=== PATIENT | female | born 1995 | race Caucasian/White ===

== ENCOUNTER 2017-07-14 07:20 | Emergency (ER) | payer BC ==
[~2017-07-14] VITALS: Ht 165.1 cm; Wt 117.9 kg
[2017-07-14 07:25] VITALS: BP_SYST 131
[2017-07-14] MEDS ORDERED: NACL 0.9% 1,000 ML IV ONE (07:45)
[2017-07-14] MEDS ORDERED: ONDANSETRON HCL 4 MG/2 ML VIAL IVP ONE (07:45)
[2017-07-14 08:18] LABS: BILIRUBIN,URINE 1+ (NEGATIVE); BLOOD, URINE 2+ (NEGATIVE); CLARITY/URINE CLEAR (CLEAR); COLOR,URINE YELLOW (YELLOW); GLUCOSE,URINE NEGATIVE (NEGATIVE); KETONES,URINE NEGATIVE (NEGATIVE); LEUKOCYTE ESTERASE ,URINE NEGATIVE (NEGATIVE); NITRITE, URINE NEGATIVE (NEGATIVE); PROTEIN URINE NEGATIVE (NEGATIVE); UROBILINOGEN,URINE 0.2 (0.2-1.0)
[2017-07-14 08:25] LABS: BASOPHILS % (AUTO) 0.5 % (0.0-2.0); EOSINOPHILS # (AUTO) 0.1 K/uL (0.0-0.4); EOSINOPHILS % (AUTO) 0.6 % (0.0-4.0); HEMATOCRIT 47.1 % (36-48); HEMOGLOBIN 15.4 g/dL (12.0-16.0); LYMPHOCYTES # (AUTO) 1.4 K/uL (1.0-5.5); LYMPHOCYTES % (AUTO) 14.7 % (20.5-51.5); MEAN CORPUSCULAR HEMOGLOBIN 28 pg (27-31); MEAN CORPUSCULAR HGB CONC 33 % (32-36); MEAN CORPUSCULAR VOLUME 84 fL (79.0-98.0); MONOCYTES # (AUTO) 0.4 K/uL (0.0-1.0); MONOCYTES % (AUTO) 4.5 % (1.7-9.3); NEUTROPHILS # (AUTO) 7.3 K/uL (1.8-7.7); NEUTROPHILS % (AUTO) 79.7 % (40.0-70.0); PLATELET COUNT (AUTO) 289 K/uL (130-430); RED BLOOD CELL COUNT(AUTO) 5.61 MIL/uL (4.2-6.2); RED CELL DISTRIBUTION WIDTH 12.5 % (9.0-15.0); WHITE BLOOD COUNT (AUTO) 9.2 K/uL (4.5-11.0)
[2017-07-14 08:39] LABS: CALCIUM 9.6 mg/dL (8.4-11.0); CREATININE 0.83 mg/dL (0.55-1.30); POTASSIUM 3.9 mmol/L (3.5-5.1)
[2017-07-14 08:44] LABS: ALBUMIN 4.6 g/dL (3.4-4.8); TOTAL BILIRUBIN 1.1 mg/dL (0.0-1.0)
[2017-07-14 09:29] LABS: BACTERIA,URINE FEW /HPF (None Seen); RBC,URINE 0-3 /HPF (0-3); WBC,URINE 0-3 /HPF (0-3)
[2017-07-14 09:30] LABS: MUCUS,URINE 1+ /LPF (None Seen)
[2017-07-14 09:45] VITALS: BP_SYST 128
== END 2017-07-14 09:45 | disposition home or self-care (01) ==
LOC: SED 07:20
DX: R11.0 Nausea (principal); Z90.89 Acquired absence of other organs; Z90.49 Acquired absence of other specified parts of digestive tract; Z90.721 Acquired absence of ovaries, unilateral
CPT/HCPCS: 36415; 74000; 80053; 81000; 81025; 83690; 85025; 96361; 96374; 99285; J2405; J7030

== ENCOUNTER 2017-09-24 04:45 | Emergency (ER) | payer BC ==
[~2017-09-24] VITALS: Ht 165.1 cm; Wt 113.4 kg
[2017-09-24 04:45] VITALS: BP_SYST 137
--- NOTE | 2017-09-24 05:31 | NUR ---
Patient to ER bed 6 to gown for evaluation. Side rails up. Report given to MONTRELL MORAN.
[2017-09-24 05:33] LABS: BILIRUBIN,URINE 1+ (NEGATIVE); BLOOD, URINE TRACE (NEGATIVE); CLARITY/URINE HAZY (CLEAR); COLOR,URINE YELLOW (YELLOW); GLUCOSE,URINE NEGATIVE (NEGATIVE); KETONES,URINE NEGATIVE (NEGATIVE); LEUKOCYTE ESTERASE ,URINE NEGATIVE (NEGATIVE); NITRITE, URINE NEGATIVE (NEGATIVE); PROTEIN URINE TRACE (NEGATIVE)
[2017-09-24] MEDS: ONDANSETRON HCL 4 MG/2 ML VIAL IVP ONE (05:39)
[2017-09-24] MEDS: NACL 0.9% 1,000 ML IV ONE (05:40)
[2017-09-24 05:42] LABS: RBC,URINE 0-3 /HPF (0-3)
--- NOTE | 2017-09-24 05:42 | NUR ---
Pt reports she has been having N/V since 8 last night. Also c/o poor appetite, SOB and chills. Denies having diarrhea. No acute distress noted at this time. Will continue to monitor.
[2017-09-24 05:43] LABS: BACTERIA,URINE MODERATE /HPF (None Seen); MUCUS,URINE 1+ /LPF (None Seen)
--- NOTE | 2017-09-24 05:55 | NUR ---
ER at bedside examining patient.
[2017-09-24 06:13] LABS: BASOPHILS # (AUTO) 0.2 K/uL (0.0-0.2); BASOPHILS % (AUTO) 2.7 % (0.0-2.0); EOSINOPHILS # (AUTO) 0.1 K/uL (0.0-0.4); EOSINOPHILS % (AUTO) 0.8 % (0.0-4.0); HEMATOCRIT 43.6 % (36-48); HEMOGLOBIN 14.4 g/dL (12.0-16.0); LYMPHOCYTES # (AUTO) 2.5 K/uL (1.0-5.5); LYMPHOCYTES % (AUTO) 28.3 % (20.5-51.5); MEAN CORPUSCULAR HEMOGLOBIN 28 pg (27-31); MEAN CORPUSCULAR HGB CONC 33 % (32-36); MEAN CORPUSCULAR VOLUME 85 fL (79.0-98.0); MONOCYTES # (AUTO) 0.8 K/uL (0.0-1.0); MONOCYTES % (AUTO) 9.6 % (1.7-9.3); NEUTROPHILS # (AUTO) 5.1 K/uL (1.8-7.7); NEUTROPHILS % (AUTO) 58.6 % (40.0-70.0); PLATELET COUNT (AUTO) 286 K/uL (130-430); RED BLOOD CELL COUNT(AUTO) 5.14 MIL/uL (4.2-6.2); RED CELL DISTRIBUTION WIDTH 12.1 % (9.0-15.0); WHITE BLOOD COUNT (AUTO) 8.7 K/uL (4.5-11.0)
[2017-09-24] MEDS: LEVOFLOXACIN 500 MG TABLET PO ONE (06:28)
[2017-09-24 06:30] LABS: CALCIUM 10.3 mg/dL (8.4-11.0); CREATININE 0.75 mg/dL (0.55-1.30); POTASSIUM 3.7 mmol/L (3.5-5.1)
[2017-09-24 06:35] LABS: ALBUMIN 4.5 g/dL (3.4-4.8); TOTAL BILIRUBIN 1.7 mg/dL (0.0-1.0)
--- NOTE | 2017-09-24 07:15 | NUR ---
Patient given written and verbal discharge instructions and verbalizes understanding. ER MD Hamilton discussed with patient the results and treatment provided. Patient in stable condition. ID arm band removed. IV catheter removed intact and dressing applied, no active bleeding. Rx of Zofran given. Patient educated on pain management and to follow up with PMD. Pain Scale 0/10. Opportunity for questions provided and answered.
[2017-09-24 07:16] VITALS: BP_SYST 121
== END 2017-09-24 07:15 | disposition home or self-care (01) ==
LOC: SED 04:45
DX: E86.0 Dehydration (principal); N39.0 Urinary tract infection, site not specified; R03.0 Elevated blood-pressure reading, without diagnosis of hypertension; Z90.49 Acquired absence of other specified parts of digestive tract; Z90.89 Acquired absence of other organs; Z90.721 Acquired absence of ovaries, unilateral
CPT/HCPCS: 36415; 71045; 74021; 80053; 81000; 81025; 85025; 87086; 96361; 96374; 99285; J2405; J7030

== ENCOUNTER 2017-09-25 22:29 | Emergency (ER) | payer BC ==
[~2017-09-25] VITALS: Ht 165.1 cm; Wt 99.8 kg
[2017-09-25 22:40] VITALS: BP_SYST 118
[2017-09-26] MEDS ORDERED: NACL 0.9% 1,000 ML IV ONE (00:12)
[2017-09-26] MEDS ORDERED: ONDANSETRON HCL 4 MG/2 ML VIAL IVP ONE (00:15)
[2017-09-26] MEDS ORDERED: KETOROLAC TROMETHAMINE 30 MG VIAL IVP ONE (00:15)
[2017-09-26] MEDS ORDERED: cefTRIAXone 1 GM IVPB PREMIX 50 ML IV ONE (00:15)
[2017-09-26 01:11] LABS: BILIRUBIN,URINE 1+ (NEGATIVE); BLOOD, URINE 3+ (NEGATIVE); CLARITY/URINE CLEAR (CLEAR); COLOR,URINE YELLOW (YELLOW); GLUCOSE,URINE NEGATIVE (NEGATIVE); KETONES,URINE 1+ (NEGATIVE); LEUKOCYTE ESTERASE ,URINE NEGATIVE (NEGATIVE); NITRITE, URINE NEGATIVE (NEGATIVE); PROTEIN URINE TRACE (NEGATIVE); UROBILINOGEN,URINE 0.2 (0.2-1.0)
[2017-09-26 01:12] LABS: BASOPHILS # (AUTO) 0.5 K/uL (0.0-0.2); EOSINOPHILS # (AUTO) 0.1 K/uL (0.0-0.4); EOSINOPHILS % (AUTO) 0.4 % (0.0-4.0); HEMOGLOBIN 13.7 g/dL (12.0-16.0); LYMPHOCYTES # (AUTO) 2.5 K/uL (1.0-5.5)
[2017-09-26 01:15] LABS: WBC,URINE 0-3 /HPF (0-3)
[2017-09-26 01:16] LABS: BACTERIA,URINE MODERATE /HPF (None Seen); MUCUS,URINE 2+ /LPF (None Seen)
[2017-09-26 01:17] LABS: BASOPHILS % (AUTO) 3.7 % (0.0-2.0); HEMATOCRIT 40.5 % (36-48); LYMPHOCYTES % (AUTO) 19.3 % (20.5-51.5); MEAN CORPUSCULAR HEMOGLOBIN 28 pg (27-31); MEAN CORPUSCULAR HGB CONC 34 % (32-36); MEAN CORPUSCULAR VOLUME 84 fL (79.0-98.0); MONOCYTES # (AUTO) 0.8 K/uL (0.0-1.0); MONOCYTES % (AUTO) 6.3 % (1.7-9.3); NEUTROPHILS # (AUTO) 9.1 K/uL (1.8-7.7); NEUTROPHILS % (AUTO) 70.3 % (40.0-70.0); PLATELET COUNT (AUTO) 204 K/uL (130-430); RED BLOOD CELL COUNT(AUTO) 4.82 MIL/uL (4.2-6.2); RED CELL DISTRIBUTION WIDTH 12.2 % (9.0-15.0)
[2017-09-26 01:25] LABS: CALCIUM 9.9 mg/dL (8.4-11.0); CREATININE 0.72 mg/dL (0.55-1.30); POTASSIUM 3.4 mmol/L (3.5-5.1)
[2017-09-26] MEDS ORDERED: METOCLOPRAMIDE HCL 10 MG/2 ML VIAL IVP ONE (01:30)
[2017-09-26] MEDS ORDERED: DIPHENHYDRAMINE INJ 50 MG/ML VIAL IVP ONE (01:30)
[2017-09-26 01:31] LABS: ALBUMIN 4.1 g/dL (3.4-4.8); TOTAL BILIRUBIN 1.4 mg/dL (0.0-1.0)
[2017-09-26 02:02] LABS: BARBITURATE, URINE NEGATIVE (NEG <=200); BENZODIAZEPINE, URINE NEGATIVE (NEG <=150); CANNABINOID, URINE POSITIVE (NEG <=50); COCAINE, URINE NEGATIVE (NEG <=150); METHAMPHETAMINES SCREEN,URINE NEGATIVE (NEG <=500); OPIATE, URINE NEGATIVE (NEG <=100); PHENCYCLIDINE SCREEN,URINE NEGATIVE (NEG <=25); UR TRICYCLIC ANTIDEPRESSANTS NEGATIVE (NEG <=300); URINE AMPHETAMINE NEGATIVE (NEG <=500); URINE METHADONE NEGATIVE (NEG <=200); URINE OXYCODONE SCREEN NEGATIVE (NEG <=100); URINE PROPOXYPHENE SCREEN NEGATIVE (NEG <=300)
[2017-09-26 03:14] VITALS: BP_SYST 131
== END 2017-09-26 03:14 | disposition home or self-care (01) ==
LOC: SED 22:29
DX: N12 Tubulo-interstitial nephritis, not specified as acute or chronic (principal)
CPT/HCPCS: 36415; 80053; 80307; 81000; 81025; 83605; 85025; 87040; 87086; 96365; 96375; 99284; J0696; J1200; J1885; J2405; J2765; J7030

== ENCOUNTER 2018-02-05 10:01 | Emergency (ER) | payer BC ==
[~2018-02-05] VITALS: Ht 165.1 cm; Wt 99.8 kg
[2018-02-05 10:20] VITALS: BP_SYST 120
--- NOTE | 2018-02-05 10:40 | NUR ---
TAKEN TO RADIOLOGY AMBULATORY
--- NOTE | 2018-02-05 11:03 | NUR ---
BROUGHT BACK TO BED #5 AND WILL ASSUME CARE, RECEIVED REPORT FROM JOSÉ MANUEL
--- NOTE | 2018-02-05 11:05 | NUR ---
Patient to ER bed 5 to gown for evaluation. Side rails up. Report given to Maureen MORAN.
--- NOTE | 2018-02-05 11:06 | NUR ---
DR OCASIO AT BEDSIDE FOR EVALAUTION
--- NOTE | 2018-02-05 11:10 | NUR ---
PT STATES SHE INJURED HER RIGHT HAND, HITTING IT ON A DRESSER. STATES PAIN WITH MOVEMENTS
--- NOTE | 2018-02-05 11:38 | NUR ---
Patient given written and verbal discharge instructions and verbalizes understanding. ER MD discussed with patient the results and treatment provided. Patient in stable condition. ID arm band removed. Rx of NAPROXEN given. Patient educated on pain management and to follow up with PMD. Pain Scale 0/10. Opportunity for questions provided and answered. Medication side effect fact sheet provided.
[2018-02-05 11:43] VITALS: BP_SYST 115
== END 2018-02-05 11:43 | disposition home or self-care (01) ==
LOC: SED 10:01
DX: S63.8X1A Sprain of other part of right wrist and hand, initial encounter (principal); J45.909 Unspecified asthma, uncomplicated; W22.8XXA Striking against or struck by other objects, initial encounter; Y93.89 Activity, other specified; Y92.89 Other specified places as the place of occurrence of the external cause; Y99.8 Other external cause status
CPT/HCPCS: 99284

== ENCOUNTER 2018-02-20 23:36 | Emergency (ER) | payer BC ==
[~2018-02-20] VITALS: Ht 165.1 cm; Wt 99.8 kg
[2018-02-21 00:15] VITALS: BP_SYST 132
[2018-02-21] MEDS ORDERED: LIDOCAINE/EPI 1% 1:100000 20 ML VIAL IJ ONE (01:00)
[2018-02-21 01:34] VITALS: BP_SYST 130
== END 2018-02-21 01:34 | disposition home or self-care (01) ==
LOC: SED 23:36
DX: N76.4 Abscess of vulva (principal); F32.9 Major depressive disorder, single episode, unspecified; R03.0 Elevated blood-pressure reading, without diagnosis of hypertension; Z90.89 Acquired absence of other organs; Z90.49 Acquired absence of other specified parts of digestive tract
CPT/HCPCS: 99284

== ENCOUNTER 2018-05-28 21:18 | Emergency (ER) | payer BC ==
[~2018-05-28] VITALS: Ht 162.6 cm; Wt 90.7 kg
[2018-05-28 21:32] VITALS: BP_SYST 154
[2018-05-28] MEDS ORDERED: NACL 0.9% 1,000 ML IV ONE (22:01)
[2018-05-28] MEDS ORDERED: LORazepam 2 MG/ML VIAL (FOR ER USE) IVP ONE (22:15)
[2018-05-28] MEDS ORDERED: ONDANSETRON HCL 4 MG/2 ML VIAL IVP ONE (22:15)
[2018-05-28] MEDS ORDERED: PANTOPRAZOLE SODIUM 40 MG/VIAL (PROTONIX) IVP ONE (22:15)
[2018-05-28 22:21] LABS: EOSINOPHILS # (AUTO) 0.1 K/uL (0.0-0.4)
[2018-05-28 22:30] LABS: CALCIUM 9.8 mg/dL (8.4-11.0); CREATININE 0.83 mg/dL (0.55-1.30); POTASSIUM 3.4 mmol/L (3.5-5.1)
[2018-05-28 22:34] LABS: ALBUMIN 4.4 g/dL (3.4-4.8); TOTAL BILIRUBIN 0.8 mg/dL (0.0-1.0)
[2018-05-28 22:38] LABS: LYMPHOCYTES # (AUTO) 1.7 K/uL (1.0-5.5)
[2018-05-28 22:50] LABS: BASOPHILS # (AUTO) 0.1 K/uL (0.0-0.2); EOSINOPHILS % (AUTO) 0.5 % (0.0-4.0); HEMATOCRIT 44.7 % (36-48); LYMPHOCYTES % (AUTO) 11.6 % (20.5-51.5); MEAN CORPUSCULAR HEMOGLOBIN 27 pg (27-31); MEAN CORPUSCULAR HGB CONC 31 % (32-36); MEAN CORPUSCULAR VOLUME 88 fL (79.0-98.0); MONOCYTES # (AUTO) 0.9 K/uL (0.0-1.0); MONOCYTES % (AUTO) 5.8 % (1.7-9.3); NEUTROPHILS % (AUTO) 81.1 % (40.0-70.0); PLATELET COUNT (AUTO) 321 K/uL (130-430); RED CELL DISTRIBUTION WIDTH 11.9 % (9.0-15.0); WHITE BLOOD COUNT (AUTO) 14.8 K/uL (4.5-11.0)
[2018-05-29 00:07] VITALS: BP_SYST 142
== END 2018-05-29 00:07 | disposition home or self-care (01) ==
LOC: SED 21:18
DX: R11.10 Vomiting, unspecified (principal); J45.909 Unspecified asthma, uncomplicated; F32.9 Major depressive disorder, single episode, unspecified; R03.0 Elevated blood-pressure reading, without diagnosis of hypertension; Z90.49 Acquired absence of other specified parts of digestive tract; Z90.89 Acquired absence of other organs
CPT/HCPCS: 36415; 80053; 83690; 85025; 96361; 96374; 96375; 99284; C9113; J2060; J2405; J7030

== ENCOUNTER 2018-06-25 05:05 | Emergency (ER) | payer BC ==
[~2018-06-25] VITALS: Ht 165.1 cm; Wt 88.5 kg
[2018-06-25 05:12] VITALS: BP_SYST 153
[2018-06-25] MEDS ORDERED: ALBU8.5H8 INH (05:18)
[2018-06-25] MEDS ORDERED: ESCI10TA PO (05:18)
[2018-06-25 05:45] LABS: BILIRUBIN,URINE 1+ (NEGATIVE); BLOOD, URINE 3+ (NEGATIVE); CLARITY/URINE HAZY (CLEAR); COLOR,URINE YELLOW (YELLOW); GLUCOSE,URINE NEGATIVE (NEGATIVE); KETONES,URINE TRACE (NEGATIVE); LEUKOCYTE ESTERASE ,URINE TRACE (NEGATIVE); NITRITE, URINE NEGATIVE (NEGATIVE); PROTEIN URINE 2+ (NEGATIVE); UROBILINOGEN,URINE 0.2 (0.2-1.0)
[2018-06-25] MEDS ORDERED: FAMOTIDINE PF 20 MG/2 ML VIAL IVP ONE (05:45)
[2018-06-25] MEDS ORDERED: DIPHENHYDRAMINE INJ 50 MG/ML VIAL IVP ONE (05:45)
[2018-06-25] MEDS ORDERED: METOCLOPRAMIDE HCL 10 MG/2 ML VIAL IVP ONE (05:45)
[2018-06-25 06:01] LABS: BARBITURATE, URINE NEGATIVE (NEG <=200); BENZODIAZEPINE, URINE POSITIVE (NEG <=150); CANNABINOID, URINE POSITIVE (NEG <=50); URINE AMPHETAMINE NEGATIVE (NEG <=500)
[2018-06-25 06:02] LABS: COCAINE, URINE NEGATIVE (NEG <=150); METHAMPHETAMINES SCREEN,URINE NEGATIVE (NEG <=500); OPIATE, URINE NEGATIVE (NEG <=100); PHENCYCLIDINE SCREEN,URINE NEGATIVE (NEG <=25); UR TRICYCLIC ANTIDEPRESSANTS NEGATIVE (NEG <=300); URINE METHADONE NEGATIVE (NEG <=200); URINE OXYCODONE SCREEN NEGATIVE (NEG <=100); URINE PROPOXYPHENE SCREEN NEGATIVE (NEG <=300)
[2018-06-25 06:04] LABS: BACTERIA,URINE FEW /HPF (None Seen); RBC,URINE 20-50 /HPF (0-3)
[2018-06-25] MEDS ORDERED: HALOPERIDOL LACTATE 5 MG/ML VIAL IVP ONE (06:15)
[2018-06-25 06:26] LABS: BASOPHILS % (AUTO) 0.2 % (0.0-2.0); EOSINOPHILS % (AUTO) 0.4 % (0.0-4.0); HEMOGLOBIN 14.9 g/dL (12.0-16.0); LYMPHOCYTES # (AUTO) 1.8 K/uL (1.0-5.5); LYMPHOCYTES % (AUTO) 15.6 % (20.5-51.5); MEAN CORPUSCULAR HEMOGLOBIN 28 pg (27-31); MEAN CORPUSCULAR HGB CONC 33 % (32-36); MEAN CORPUSCULAR VOLUME 86 fL (79.0-98.0); MONOCYTES # (AUTO) 0.8 K/uL (0.0-1.0); MONOCYTES % (AUTO) 6.7 % (1.7-9.3); NEUTROPHILS # (AUTO) 8.7 K/uL (1.8-7.7); NEUTROPHILS % (AUTO) 77.1 % (40.0-70.0); PLATELET COUNT (AUTO) 303 K/uL (130-430); RED BLOOD CELL COUNT(AUTO) 5.26 MIL/uL (4.2-6.2); RED CELL DISTRIBUTION WIDTH 11.9 % (9.0-15.0); WHITE BLOOD COUNT (AUTO) 11.3 K/uL (4.5-11.0)
[2018-06-25 06:28] LABS: CALCIUM 9.8 mg/dL (8.4-11.0); CREATININE 0.97 mg/dL (0.55-1.30); POTASSIUM 3.7 mmol/L (3.5-5.1)
[2018-06-25 06:31] LABS: ALBUMIN 4.3 g/dL (3.4-4.8); TOTAL BILIRUBIN 0.8 mg/dL (0.0-1.0)
[2018-06-25 06:57] VITALS: BP_SYST 142
== END 2018-06-25 06:51 | disposition home or self-care (01) ==
LOC: SED 05:05
DX: F12.188 Cannabis abuse with other cannabis-induced disorder (principal); F32.9 Major depressive disorder, single episode, unspecified; J45.909 Unspecified asthma, uncomplicated
CPT/HCPCS: 36415; 80053; 80307; 81000; 81025; 83690; 85025; 96374; 96375; 99284; J1200; J1630; J2765; J3490

== ENCOUNTER 2018-10-08 15:51 | Emergency (ER) | payer BC ==
[~2018-10-08] VITALS: Ht 165.1 cm; Wt 86.2 kg
[~2018-10-08 15:51] MED LIST: ALBU8.5H8 INH; ESCI10TA PO
[2018-10-08 15:59] VITALS: BP_SYST 123
--- NOTE | 2018-10-08 16:47 | NUR ---
[id number] - Patient to ER bed 5 to gown for evaluation. Side rails up. Report given to DEAN Blackwell.
--- NOTE | 2018-10-08 16:50 | NUR ---
patient arrived to the ED with boyfriend with c/o painful mass under the skin near the left side of anus x 2 weeks. Patient states she has had several cysts and it feels like a cysts. no redness with 10/10 pain upon palpation. no other complaint or injury at this time.
[2018-10-08] MEDS ORDERED: LIDOCAINE 1% 10 MG/ML, 20 ML MDV INJ ONE (17:00)
[2018-10-08] MEDS ORDERED: IBUPROFEN 800 MG TABLET PO ONE (17:00)
--- NOTE | 2018-10-08 17:00 | NUR ---
ER at bedside examining patient.
--- NOTE | 2018-10-08 17:15 | NUR ---
patient would like pain medication for the ride home due to location of skin injury. unable to reassess pain due to patient discharge pending
[2018-10-08 17:21] VITALS: BP_SYST 120
--- NOTE | 2018-10-08 17:21 | NUR ---
Patient given written and verbal discharge instructions and verbalizes understanding. ER MD discussed with patient the results and treatment provided. Patient in stable condition. ID arm band removed. Rx of Bactrim DS, Motrin given. Patient educated on pain management and to follow up with PMD. Pain Scale 0/10. Opportunity for questions provided and answered. Medication side effect fact sheet provided.
== END 2018-10-08 17:21 | disposition home or self-care (01) ==
LOC: SED 15:51
DX: L98.8 Other specified disorders of the skin and subcutaneous tissue (principal); J45.909 Unspecified asthma, uncomplicated; F31.9 Bipolar disorder, unspecified
CPT/HCPCS: 99283; J2001

== ENCOUNTER 2019-03-04 09:35 | Emergency (ER) | payer BC ==
[~2019-03-04] VITALS: Ht 165.1 cm; Wt 72.6 kg
[2019-03-04 09:48] VITALS: BP_SYST 112
--- NOTE | 2019-03-04 09:52 | NUR ---
Patient to ER bed 4 to gown for evaluation. Side rails up. Report given to Primo MORAN.
--- NOTE | 2019-03-04 09:53 | NUR ---
Patient is awake, alert, and oriented x4. Patient reports she woke up yesterday with a "knot" on the back left side of her head getting worse today. Patient presents with no skin redness, small bump that is tender touch, aching pain 9/10.
--- NOTE | 2019-03-04 09:54 | NUR ---
ER Dr. Blackwood at bedside examining patient.
--- NOTE | 2019-03-04 10:05 | NUR ---
Patient given written and verbal discharge instructions and verbalizes understanding. ER MD discussed with patient the results and treatment provided. Patient in stable condition. ID arm band removed. Rx of keflex, motrin given. Patient educated on pain management and to follow up with PMD. Pain Scale 9/10, Dr. Blackwood is aware. Opportunity for questions provided and answered. Medication side effect fact sheet provided.
[2019-03-04 10:07] VITALS: BP_SYST 112
== END 2019-03-04 10:05 | disposition home or self-care (01) ==
LOC: SED 09:35
DX: L03.811 Cellulitis of head [any part, except face] (principal); J45.909 Unspecified asthma, uncomplicated; F32.9 Major depressive disorder, single episode, unspecified; F17.210 Nicotine dependence, cigarettes, uncomplicated; Z90.49 Acquired absence of other specified parts of digestive tract; Z90.89 Acquired absence of other organs; Z79.899 Other long term (current) drug therapy
CPT/HCPCS: 99283

== ENCOUNTER 2020-01-04 04:07 | Emergency (ER) | payer BC ==
[~2020-01-04] VITALS: Ht 165.1 cm; Wt 93.0 kg
[2020-01-04 04:07] VITALS: BP_SYST 151
[2020-01-04] MEDS ORDERED: ONDANSETRON HCL 4 MG/2 ML VIAL IVP ONE ×2 (04:45)
[2020-01-04] MEDS ORDERED: NACL 0.9% 1,000 ML IV ONE (04:45)
[2020-01-04 04:57] LABS: MEAN CORPUSCULAR VOLUME 88 fL (79.0-98.0); MONOCYTES # (AUTO) 0.7 K/uL (0.0-1.0)
[2020-01-04 05:02] LABS: BASOPHILS # (AUTO) 0.1 K/uL (0.0-0.2); BASOPHILS % (AUTO) 0.5 % (0.0-2.0); EOSINOPHILS % (AUTO) 0.2 % (0.0-4.0); HEMATOCRIT 41.9 % (36-48); HEMOGLOBIN 14.1 g/dL (12.0-16.0); LYMPHOCYTES # (AUTO) 1.8 K/uL (1.0-5.5); LYMPHOCYTES % (AUTO) 11.7 % (20.5-51.5); MEAN CORPUSCULAR HEMOGLOBIN 29 pg (27-31); MEAN CORPUSCULAR HGB CONC 34 % (32-36); MONOCYTES % (AUTO) 4.9 % (1.7-9.3); NEUTROPHILS # (AUTO) 12.5 K/uL (1.8-7.7); NEUTROPHILS % (AUTO) 82.7 % (40.0-70.0); PLATELET COUNT (AUTO) 307 K/uL (130-430); RED BLOOD CELL COUNT(AUTO) 4.79 MIL/uL (4.2-6.2); RED CELL DISTRIBUTION WIDTH 12.9 % (9.0-15.0); WHITE BLOOD COUNT (AUTO) 15.2 K/uL (4.8-10.8)
[2020-01-04 05:09] LABS: CREATININE 0.99 mg/dL (0.55-1.30); POTASSIUM 3.5 mmol/L (3.5-5.1)
[2020-01-04 05:21] LABS: ALBUMIN 4.2 g/dL (3.4-4.8); TOTAL BILIRUBIN 0.8 mg/dL (0.0-1.0)
[2020-01-04] MEDS ORDERED: METOCLOPRAMIDE HCL 10 MG/2 ML VIAL IVP ONE (05:45)
[2020-01-04 05:49] LABS: BILIRUBIN,URINE NEGATIVE (NEGATIVE); BLOOD, URINE 2+ (NEGATIVE); CLARITY/URINE CLEAR (CLEAR); COLOR,URINE YELLOW (YELLOW); GLUCOSE,URINE NEGATIVE (NEGATIVE); KETONES,URINE NEGATIVE (NEGATIVE); LEUKOCYTE ESTERASE ,URINE NEGATIVE (NEGATIVE); NITRITE, URINE NEGATIVE (NEGATIVE); PH,URINE 6.5 (5.0-8.0); PROTEIN URINE NEGATIVE (NEGATIVE); UROBILINOGEN,URINE 0.2 (0.2-1.0)
[2020-01-04] MEDS ORDERED: METOCLOPRAMIDE HCL 10 MG/2 ML VIAL ONE (05:50)
[2020-01-04 05:53] LABS: BACTERIA,URINE FEW /HPF (None Seen); WBC,URINE 0-3 /HPF (0-3)
[2020-01-04 07:00] VITALS: BP_SYST 151
== END 2020-01-04 07:00 | disposition home or self-care (01) ==
LOC: SED 04:07
DX: R11.10 Vomiting, unspecified (principal); R10.30 Lower abdominal pain, unspecified; J45.909 Unspecified asthma, uncomplicated; Z79.899 Other long term (current) drug therapy
CPT/HCPCS: 36415; 80053; 81000; 81025; 83690; 84702; 85025; 96361; 96374; 96375; 99284; J2405; J2765

== ENCOUNTER 2020-04-22 13:37 | Emergency (ER) | payer BC ==
[~2020-04-22] VITALS: Ht 165.1 cm; Wt 86.2 kg
[2020-04-22 13:45] VITALS: BP_SYST 125
[2020-04-22] MEDS ORDERED: BACITRACIN 1 GM OINT TP ONE (14:30)
[2020-04-22 14:39] VITALS: BP_SYST 125
== END 2020-04-22 14:40 | disposition home or self-care (01) ==
LOC: SED 13:37
DX: T24.111A Burn of first degree of right thigh, initial encounter (principal); T24.112A Burn of first degree of left thigh, initial encounter; J45.909 Unspecified asthma, uncomplicated; Z79.899 Other long term (current) drug therapy; V49.40XA Driver injured in collision with unspecified motor vehicles in traffic accident, initial encounter; W22.11XA Striking against or struck by driver side automobile airbag, initial encounter; Y93.89 Activity, other specified; Y92.89 Other specified places as the place of occurrence of the external cause; Y99.8 Other external cause status
CPT/HCPCS: 99283